=== PATIENT | female | born 1975 | race Caucasian/White ===

== ENCOUNTER 2019-08-01 09:03 | Emergency (ER) | payer OTHER ==
[~2019-08-01] VITALS: Ht 167.6 cm; Wt 70.3 kg
[~2019-08-01 09:03] MED LIST: CIPRO500 MG PO; FLAGYL500MG PO; PEPCID20 MG PO; PEPCID40 MG PO; PHENERGAN25 MG PO
[2019-08-01] MEDS ORDERED: INTESTINEX680 M1 PO (12:32)
[2019-08-01] MEDS ORDERED: KETO10TA2 PO (12:32)
[2019-08-01] MEDS ORDERED: AMOX-CLAV 875-1 EACH PO (12:32)
== END 2019-08-01 12:57 | disposition home or self-care (01) ==
LOC: ER 09:03
DX: J35.01 Chronic tonsillitis (principal)

== ENCOUNTER 2025-02-04 11:41 | Emergency (ER) | payer OTHER ==
[~2025-02-04] VITALS: Ht 172.7 cm; Wt 61.2 kg
[~2025-02-04 11:41] MED LIST changes: +AMOX-CLAV 875-1 EACH PO; +INTESTINEX680 M1 PO; +KETO10TA2 PO
[2025-02-04] MEDS ORDERED: SYNTHROID112 MCG PO (12:16)
[2025-02-04] MEDS ORDERED: ONDANSETRON 4 MG TAB.RAPDIS PO ONE ×2 (12:30→12:46)
[2025-02-04] MEDS ORDERED: FAMOtidine 20 MG TABLET PO ONE (12:30)
[2025-02-04] MEDS ORDERED: BUTALB/ACETAMINOPHEN/CAFFEINE 1 TAB TABLET PO ONE ×2 (12:30→12:45)
[2025-02-04] MEDS ORDERED: BUTALBIT-ACETA1 EACH PO (12:31)
== END 2025-02-04 13:03 | disposition home or self-care (01) ==
LOC: ER 11:42
DX: G43.909 Migraine, unspecified, not intractable, without status migrainosus (principal); E03.8 Other specified hypothyroidism